=== PATIENT | female | born 1980 | race Caucasian/White ===

== ENCOUNTER 2020-07-31 11:03 | Emergency (ER) | payer SELFPAY ==
[~2020-07-31] VITALS: Ht 157.5 cm; Wt 66.0 kg
[2020-07-31 11:05] VITALS: BP 127/89
== END 2020-07-31 11:25 | disposition left against medical advice (07) ==
LOC: ER 11:03
DX: M79.621 Pain in right upper arm (principal)
CPT/HCPCS: 99281